=== PATIENT | female | born 1960 | race American Indian/Alaskan Native ===

== ENCOUNTER 2021-04-21 07:12 | Emergency (ER) | payer OTHER ==
[2021-04-21] MEDS ORDERED: ASPIRIN 325 MG TAB PO ONE (07:48)
[2021-04-21 08:11] LABS: Basophils # (Auto) 0.1 K/mm3 (0.0-0.1); Basophils % (Auto) 1.1 % (0.0-1.8); Eosinophils # (Auto) 0.1 K/mm3 (0.0-0.4); Eosinophils % (Auto) 2.3 % (0.0-4.3); Hematocrit 39.4 % (30.3-42.9); Hemoglobin 12.4 gm/dl (10.1-14.3); Lymphocytes # (Auto) 2.3 K/mm3 (1.2-5.4); Lymphocytes % (Auto) 39.2 % (13.4-35.0); Mean Corpuscular HGB Conc 31 % (30-34); Mean Corpuscular Volume 74 fl (79-97); Monocytes # (Auto) 0.3 K/mm3 (0.0-0.8); Monocytes % (Auto) 5.3 % (0.0-7.3); Platelet Count 198 K/mm3 (140-440); Red Blood Count 5.33 M/mm3 (3.65-5.03); Red Cell Distribution Width 16.8 % (13.2-15.2)
[2021-04-21 08:31] LABS: Alanine Aminotransferase 22 units/L (7-56); Albumin 4.7 g/dL (3.9-5); Blood Urea Nitrogen 17 mg/dL (7-17); Calcium 9.4 mg/dL (8.4-10.2); Hemolysis Index 29
[2021-04-21 08:34] LABS: BUN/Creatinine Ratio 24
--- NOTE | 2021-04-21 08:40 | XRay Report ---
CHEST 2 VIEWS INDICATION / CLINICAL INFORMATION: chest pain. COMPARISON: None available. FINDINGS: SUPPORT DEVICES: None. HEART / MEDIASTINUM: No significant abnormality. LUNGS / PLEURA: No significant pulmonary or pleural abnormality. No pneumothorax. ADDITIONAL FINDINGS: No significant additional findings. IMPRESSION: 1. No acute findings. Signer Name: Nikhil Bonilla MD Signed: 04/21/2021 8:36 AM Workstation Name: [id number]
--- NOTE | 2021-04-21 09:00 | Emergency Department Report ---
ED General Adult HPI - General Chief complaint: Chest Pain Stated complaint: HEADACHE/BODY ACHE/PAIN Source: patient Mode of arrival: Ambulatory Limitations: No Limitations - History of Present Illness Initial comments: 60-year-old female complaining of weakness only when she walks she feels weak just from her waist down to her legs Also pain in the middle of her chest x3 days she denies cough her chest pain does not radiate there is no fever there is no shortness of breath. Her weakness only occurs when she walks and the weakness is only from her waist down. When she is sitting there is no weakness she denies dizziness there is no headache there is no change in her vision no double or blurry vision. She has a past medical history of diabetes. Patient states she was seen by her PCP 2 weeks ago and there is been no improvement in her symptoms. - Related Data Previous Rx's Medication Instructions Recorded Last Taken Type Acetaminophen [Tylenol] 650 mg PO QID PRN #30 capsule 09/18/18 Unknown Rx cephALEXin [Keflex] 500 mg PO BID #14 capsule 09/18/18 Unknown Rx Naproxen 500 mg PO BID #30 tablet 09/22/18 Unknown Rx Allergies Allergy/AdvReac Type Severity Reaction Status Date / Time No Known Allergies Allergy Verified 04/21/21 07:42 ED Review of Systems ROS: Stated complaint: HEADACHE/BODY ACHE/PAIN Other details as noted in HPI ED Past Medical Hx - Past Medical History Hx Hypertension: Yes Hx Diabetes: Yes Additional medical history: high cholestrol - Social History Smoking Status: Never Smoker Substance Use Type: None - Medications Home Medications: Home Medications Medication Instructions Recorded Confirmed Last Taken Type Acetaminophen [Tylenol] 650 mg PO QID PRN #30 capsule 09/18/18 Unknown Rx cephALEXin [Keflex] 500 mg PO BID #14 capsule 09/18/18 Unknown Rx Naproxen 500 mg PO BID #30 tablet 09/22/18 Unknown Rx ED Physical Exam - General Limitations: No Limitations ED Course Vital Signs 04/21/21 04/21/21 07:41 12:49 Temperature 98.3 F Pulse Rate 74 82 Blood Pressure 165/49 159/78 [Left] O2 Sat by Pulse 100 98 Oximetry - Reevaluation(s) Reevaluation #1: 04/21/21 10:[address] Schmitt he he agrees that patient need CT of the abdomen and pelvis with contrast specifically because patient complaining of weakness to the lower extremities when she stands and she has a widened pulse pressure repeat blood pressure now is 132/46. Patient is in no acute distress with no current complaints 04/21/21 17:44 ED Medical Decision Making - Lab Data Result diagrams: 04/21/21 07:51 04/21/21 07:51 - Radiology Data Radiology results: report reviewed FINDINGS: Lungs/bones: Lung bases are clear Abdomen/pelvis: There is diffuse fatty infiltration of the liver. The spleen, adrenal glands, pancreas and gallbladder appear normal. Upper GI tract appear normal. Bilateral kidneys are unremarkable. The appendix appears normal. There is no bowel obstruction. Celiac and SMA appear normal. Portal vein is patent. No focal inflammatory changes seen. No acute bone findings are identified. IMPRESSION: 1. Fatty infiltration liver. 2. No other acute findings are seen. No focal inflammatory change. - Medical Decision Making 60-year-old female presents to emergency room complaining of weakness when to her lower extremities when she stands she also states she has been having chest pain for 4 days midsternal non-radiating. I discussed with Dr. Schmitt the plan of care and all results. EKG negative for STEMI. Troponin x2 is negative. CT of the abdomen and pelvis with contrast completed and negative. Patient d ischarged home to follow-up with her primary care doctor to return if there is any worsening or any change in her condition. Critical Care Time: No Critical care attestation.: If time is entered above; I have spent that time in minutes in the direct care of this critically ill patient, excluding procedure time. ED Disposition Clinical Impression: Atypical chest pain, Leg weakness, bilateral Disposition: DC-01 TO HOME OR SELFCARE Is pt being admited?: No Does the pt Need Aspirin: No Condition: Stable Instructions: Nonspecific Chest Pain, Adult Additional Instructions: Please follow-up with your primary care doctor as soon as possible or follow-up with Dr. Burgess. In 3 to 5 days. If no improvement or worsening symptoms please return to the emergency room. The CAT scan that you had done today only showed that your liver is fatty please follow-up with your primary care doctor regarding this otherwise there were no acute findings Referrals: PRIMARY CARE, [Primary Care Provider] - 3-5 Days Forms: Work/School Release Form(ED) Time of Disposition: 12:40
--- NOTE | 2021-04-21 12:08 | Cat Scan Report ---
CT ABDOMEN AND PELVIS WITH CONTRAST HISTORY: MAIN. Weakness lower extremities COMPARISON: None. TECHNIQUE: CT images of the abdomen and pelvis were obtained following administration of intravenous contrast. All CT scans at this location are performed using CT dose reduction for ALARA by means of automated exposure control. CONTRAST: 100 ml of intravenous contrast administered. FINDINGS: Lungs/bones: Lung bases are clear Abdomen/pelvis: There is diffuse fatty infiltration of the liver. The spleen, adrenal glands, pancre as and gallbladder appear normal. Upper GI tract appear normal. Bilateral kidneys are unremarkable. T he appendix appears normal. There is no bowel obstruction. Celiac and SMA appear normal. Portal vein is patent. No focal inflammatory changes seen. No acute bone findings are identified. IMPRESSION: 1. Fatty infiltration liver. 2. No other acute findings are seen. No focal inflammatory change. Signer Name: Nikhil Bonilla MD Signed: 04/21/2021 12:04 PM Workstation Name: [id number]
[2021-04-21 12:49] VITALS: BP 159/78
--- NOTE | 2021-04-23 21:32 | Electrocardiograph Report ---
[facility] Test Date: 2021-04-21 Test Time: 07:45:39 Pat Name: ANYI ZAMAN Department: Room: Gender: F Last Putter Away: TV : 1960 Requested By: JACKSON TUCKER Order Number: [id number] Reading MD: Harleen Camacho Measurements Intervals [place] Rate: 67 P: 68 VA: 190 QRS: -5 QRSD: 94 T: 0 QT: 409 QTc: 431 Interpretive Statements Sinus rhythm Consider left ventricular hypertrophy No previous ECG available for comparison Electronically Signed On 04-23-2021 21:32:20 EDT by Harleen Camacho
== END 2021-04-21 12:48 | disposition home or self-care (01) ==
LOC: ED 07:12
DX: R07.89 Other chest pain (principal); R29.898 Other symptoms and signs involving the musculoskeletal system; E78.00 Pure hypercholesterolemia, unspecified; I10 Essential (primary) hypertension; E11.9 Type 2 diabetes mellitus without complications; Z79.899 Other long term (current) drug therapy
CPT/HCPCS: 36415; 71046; 74177; 80053; 82550; 84484; 85025; 93005; 99284; Q9967

== ENCOUNTER 2022-03-25 21:25 | Observation (INO) | payer OTHER ==
[2022-03-25] MEDS ORDERED: ASPIRIN 325 MG TAB PO ONE (21:34)
[2022-03-25 22:15] LABS: Basophils # (Auto) 0.1 K/mm3 (0.0-0.1); Basophils % (Auto) 0.8 % (0.0-1.8); Eosinophils # (Auto) 0.1 K/mm3 (0.0-0.4); Eosinophils % (Auto) 1.3 % (0.0-4.3); Hematocrit 37.4 % (30.3-42.9); Hemoglobin 11.7 gm/dl (10.1-14.3); Lymphocytes # (Auto) 2.4 K/mm3 (1.2-5.4); Lymphocytes % (Auto) 32.4 % (13.4-35.0); Mean Corpuscular HGB Conc 31 % (30-34); Mean Corpuscular Volume 73 fl (79-97); Monocytes # (Auto) 0.6 K/mm3 (0.0-0.8); Monocytes % (Auto) 7.6 % (0.0-7.3); Platelet Count 256 K/mm3 (140-440); Red Blood Count 5.13 M/mm3 (3.65-5.03); Red Cell Distribution Width 15.1 % (13.2-15.2)
--- NOTE | 2022-03-25 22:27 | XRay Report ---
CHEST 2 VIEWS INDICATION / CLINICAL INFORMATION: CHEST PAIN. COMPARISON: 2 views of the chest from 04/21/2021. FINDINGS: SUPPORT DEVICES: None. HEART / MEDIASTINUM: No significant abnormality. LUNGS / PLEURA: No significant pulmonary abnormality. No significant pleural effusion. No pneumothora x. ADDITIONAL FINDINGS: No significant additional findings. IMPRESSION: 1. No acute abnormality of the chest. Signer Name: Jason Estrada MD Signed: 03/25/2022 10:23 PM Workstation Name: [id number]
[2022-03-25 22:35] LABS: Alanine Aminotransferase 97 units/L (7-56); Albumin 4.3 g/dL (3.9-5); BUN/Creatinine Ratio 16; Blood Urea Nitrogen 22 mg/dL (7-17); Calcium 9.6 mg/dL (8.4-10.2); Hemolysis Index 11
[2022-03-26] MEDS ORDERED: MORPHINE 4 MG/1 ML INJ IV ONE (04:02)
[2022-03-26] MEDS ORDERED: SODIUM CHLORIDE 0.9% 1000 ML 1,000 ML IV ONE (04:02)
[2022-03-26] MEDS ORDERED: ONDANSETRON 4 MG/2 ML INJ IV ONE (04:02)
[2022-03-26] MEDS ORDERED: FAMOTIDINE 20 MG/2 ML INJ IV ONE (04:02)
[2022-03-26 05:37] LABS: Bilirubin,Urine NEG (Negative); Blood,Urine NEG (Negative); Color,Urine Colorless (Yellow); Mucus,Urine FEW /HPF; Protein,Urine <15 mg/dL mg/dL (Negative); Urobilinogen,Urine < 2.0 mg/dL (<2.0); WBC,Urine < 1.0 /HPF (0.0-6.0)
--- NOTE | 2022-03-26 06:28 | Cat Scan Report ---
CTA CHEST WITH CONTRAST INDICATION / CLINICAL INFORMATION: Weakness and chest pain with S.O.B.. TECHNIQUE: Axial CT images were obtained through the chest after injection of 100 cc Omnipaque 350 IV contrast. 3 plane MIP and/or 3D reconstructions were produced. All CT scans at this location are per formed using CT dose reduction for ALARA by means of automated exposure control. COMPARISON: Chest x-ray 03/25/2022 FINDINGS: VASCULAR FINDINGS: PULMONARY ARTERY: Pulmonary artery is normal in size. No filling defects are present compatible with pulmonary artery embolus.. THORACIC AORTA: No significant abnormality. CORONARY ARTERY CALCIFICATION: Absent -- None. NONVASCULAR FINDINGS: LOWER NECK: Soft tissues and musculature of the lower neck demonstrate no significant abnormality. Th e thyroid demonstrates no significant abnormality. HEART: No significant abnormality. MEDIASTINUM / RENATO: No significant abnormality. ESOPHAGUS: No significant abnormality. LYMPH NODES: No adenopathy within the axilla, mediastinum, or renato. LUNGS: No acute air space or interstitial disease. PLEURA: No pleural effusion. No pneumothorax. THORACIC SOFT TISSUES: No significant abnormality of the chest wall or upper thoracic musculature. BONES: No significant skeletal abnormalities. ADDITIONAL CHEST FINDINGS: None. UPPER ABDOMEN: No significant abnormality. IMPRESSION: 1. No CT evidence for pulmonary embolism. 2. No acute findings. Signer Name: Pete Sainz II, MD Signed: 03/26/2022 6:24 AM Workstation Name: [id number]
--- NOTE | 2022-03-26 07:17 | Emergency Department Report ---
ED Chest Pain HPI - General Chief Complaint: Chest Pain Stated Complaint: HEADACHE/WEAKNESS/SOB Source: patient Mode of arrival: Ambulatory Limitations: No Limitations - History of Present Illness Initial Comments: Patient is a 61-year-old -[place] female with a history of hypertension, anxiety, hyperlipidemia, chronic low back pain with sciatica, kzc-cwufobp-ddfxmited diabetes who presents to the ED with complaint of acute onset persistent substernal chest pain with a burning sensation radiating to her throat and neck, sore throat, and which gets worse when she eats food for the last 3 days. Patient also complains of shortness of breath on exertion. Patient states that she just returned from a visit in [place] where she stayed for 2 weeks. Patient states that the pain has been persistent and worsens with food, movement, generalized weakness, and shortness of breath and sore throat. Patient denies dizziness, syncope, lightheadedness, headache, fever, chills, cough, abdominal pain, nausea and vomiting, nasal and sinus congestion, neck pain, numbness and tingling or weakness of upper and lower extremities bilaterally. MD Complaint: chest pain, other (Low back pain radiating to the lower extremities bilaterally) -: Sudden, days(s) (3) Onset: during exertion, other (Returned from a recent trip in [place] 4 days ago) Pain Location: substernal (Burning substernal chest pain) Pain Radiation: other (Sore throat) Severity: moderate Severity scale (0 -10): 4 Quality: aching, other (Burning substernal chest pain) Consistency: constant Improves With: nothing Worsens With: exertion, eating, other (Swallowing) Context: recent travel (Returned 4 days ago from a 2-week visit to [place]) re: denies: nausea, vomting, diaphoresis, dyspnea, sense of impending doom Other Symptoms: acid taste in mouth, other (Sore throat). denies: cough, fever, syncope, rash, palpitations Treatments Prior to Arrival: none - Related Data On Oral Contraceptives: No Previous Rx's Medication Instructions Recorded Last Taken Type Acetaminophen [Tylenol] 650 mg PO QID PRN #30 capsule 09/18/18 Unknown Rx cephALEXin [Keflex] 500 mg PO BID #14 capsule 09/18/18 Unknown Rx Naproxen 500 mg PO BID #30 tablet 09/22/18 Unknown Rx Allergies Allergy/AdvReac Type Severity Reaction Status Date / Time No Known Allergies Allergy Verified 04/21/21 07:42 Heart Score - HEART Score History: Slightly suspicious EKG: Non-specific Age: 45-65 Risk factors: > 3 risk factors or hx of atherosclerotic disease Troponin: < normal limit HEART Score: 4 - EKG Read Time Time EKG Completed: 21:41 EKG Read Time: 21:44 - Critical Actions Critical Actions: 4-6 pts:12-16.6% risk of adverse cardiac event. Should be ad mitted ED Review of Systems ROS: Stated complaint: HEADACHE/WEAKNESS/SOB Other details as noted in HPI Constitutional: denies: chills, fever Eyes: denies: eye pain, eye discharge, vision change ENT: throat pain. denies: ear pain Respiratory: denies: cough, shortness of breath, wheezing Cardiovascular: chest pain (Substernal burning chest pain radiating to the throat). denies: palpitations, dyspnea on exertion, edema, syncope Endocrine: no symptoms reported Gastrointestinal: denies: abdominal pain, nausea, vomiting, diarrhea Genitourinary: denies: urgency, dysuria, discharge Musculoskeletal: back pain (Low back pain), arthralgia. denies: joint swelling Skin: denies: rash, lesions Neurological: denies: headache, weakness, paresthesias Psychiatric: denies: anxiety, depression Hematological/Lymphatic: denies: easy bleeding, easy bruising ED Past Medical Hx - Past Medical History Hx Hypertension: Yes Hx Diabetes: Yes Additional medical history: high cholestrol - Social History Smoking Status: Never Smoker Substance Use Type: None - Medications Home Medications: Home Medications Medication Instructions Recorded Confirmed Last Taken Type Acetaminophen [Tylenol] 650 mg PO QID PRN #30 capsule 09/18/18 Unknown Rx cephALEXin [Keflex] 500 mg PO BID #14 capsule 09/18/18 Unknown Rx Naproxen 500 mg PO BID #30 tablet 09/22/18 Unknown Rx ED Physical Exam - General Limitations: No Limitations General appearance: alert, in no apparent distress - Head Head exam: Present: atraumatic, normocephalic, normal inspection - Eye Eye exam: Present: normal appearance, PERRL, EOMI Pupils: Present: normal accommodation - ENT ENT exam: Present: mucous membranes moist, TM's normal bilaterally, normal external ear exam, other (Mild erythematous oropharynx) - Neck Neck exam: Present: normal inspection, full ROM, lymphadenopathy (Right anterior cervical lymphadenopathy). Absent: tenderness - Respiratory Respiratory exam: Present: normal lung sounds bilaterally, chest wall tenderness (Palpable reproducible anterior chest wall tenderness). Absent: respiratory distress, wheezes, rales, accessory muscle use, prolonged expiratory - Cardiovascular Cardiovascular Exam: Present: regular rate, normal rhythm, normal heart sounds. Absent: systolic murmur, diastolic murmur, rubs, gallop - GI/Abdominal GI/Abdominal exam: Present: soft, normal bowel sounds. Absent: tenderness, guarding, rebound, rigid, hyperactive bowel sounds, hypoactive bowel sounds, mass, pulsatile mass - Extremities Exam Extremities exam: Present: normal inspection, full ROM, normal capillary refill - Back Exam Back exam: Present: normal inspection, full ROM. Absent: tenderness, CVA tenderness (R), CVA tenderness (L), muscle spasm, paraspinal tenderness, vertebral tenderness - Neurological Exam Neurological exam: Present: alert, oriented X3, CN II-XII intact, normal gait, reflexes normal - Psychiatric Psychiatric exam: Present: normal affect, normal mood - Skin Skin exam: Present: warm, dry, intact, normal color. Absent: rash ED Course Vital Signs 03/25/22 21:37 Temperature 98.1 F Pulse Rate 75 Respiratory 18 Rate Blood Pressure 142/56 O2 Sat by Pulse 100 Oximetry FADI score - Fadi Score Age > 65: (0) No Aspirin use within the Past 7 Days: (0) No 3 or more CAD Risk Factors: (1) Yes 2 or more Angina events in past 24 hrs: (1) Yes Known CAD with more than 50% Stenosis: (0) No Elevated Cardiac Markers: (0) No ST Deviation Greater than 0.5mm: (0) No FADI Score: 2 ED Medical Decision Making - Lab Data Result diagrams: 03/25/22 21:47 03/25/22 21:47 - EKG Data EKG shows normal: sinus rhythm Rate: normal - EKG Data Interpretation: normal EKG 03/26/22 07:20 EKG shows normal sinus rhythm with a ventricular rate of 75 bpm with a borderline ST elevation in anterior leads - Radiology Data Radiology results: report reviewed, image reviewed [facility] [address] [place] [address] XRay Report Signed Patient: ANYI ZAMAN I MR#: [id number] : 1960 Acct:[id number] Age/Sex: 61 / F ADM Date: 03/25/22 Loc: ED Attending Dr: Ordering Physician: AILIN GRACIA MD Date of Service: 03/25/22 Procedure(s): XR chest routine 2V Accession Number(s): [id number] cc: ED MD SAMIA Fluoro Time In Minutes: CHEST 2 VIEWS INDICATION / CLINICAL INFORMATION: CHEST PAIN. COMPARISON: 2 views of the chest from 04/21/2021. FINDINGS: SUPPORT DEVICES: None. HEART / MEDIASTINUM: No significant abnormality. LUNGS / PLEURA: No significant pulmonary abnormality. No significant pleural effusion. No pneumothorax. ADDITIONAL FINDINGS: No significant additional findings. IMPRESSION: 1. No acute abnormality of the chest. Signer Name: Jason Estrada MD Signed: 03/25/2022 10:23 PM Workstation Name: [id number] Transcribed By: MN Dictated By: Jason Estrada MD Electronically Authenticated By: Jason Estrada MD Signed Date/Time: 03/25/222222 DD/ 21 TD/TT: [facility] [address] [place] [address] Cat Scan Report Signed Patient: ANYI ZAMAN I MR#: [id number] : 1960 Acct:[id number] Age/Sex: 61 / F ADM Date: 03/25/22 Loc: ED Attending Dr: Ordering Physician: ASH SIMPSON Date of Service: 03/26/22 Procedure(s): CT angio chest Accession Number(s): [id number] cc: ASH SIMPSON CTA CHEST WITH CONTRAST INDICATION / CLINICAL INFORMATION: Weakness and chest pain with S.O.B.. TECHNIQUE: Axial CT images were obtained through the chest after injection of 100 cc Omnipaque 350 IV contrast. 3 plane MIP and/or 3D reconstructions were produced. All CT scans at this location are performed using CT dose reduction for ALARA by means of automated exposure control. COMPARISON: Chest x-ray 03/25/2022 FINDINGS: VASCULAR FINDINGS: PULMONARY ARTERY: Pulmonary artery is normal in size. No filling defects are present compatible with pulmonary artery embolus.. THORACIC AORTA: No significant abnormality. CORONARY ARTERY CALCIFICATION: Absent -- None. NONVASCULAR FINDINGS: LOWER NECK: Soft tissues and musculature of the lower neck demonstrate no significant abnormality. The thyroid demonstrates no significant abnormality. HEART: No significant abnormality. MEDIASTINUM / NAI: No significant abnormality. ESOPHAGUS: No significant abnormality. LYMPH NODES: No adenopathy within the axilla, mediastinum, or nai. LUNGS: No acute air space or interstitial disease. PLEURA: No pleural effusion. No pneumothorax. THORACIC SOFT TISSUES: No significant abnormality of the chest wall or upper thoracic musculature. BONES: No significant skeletal abnormalities. ADDITIONAL CHEST FINDINGS: None. UPPER ABDOMEN: No significant abnormality. IMPRESSION: 1. No CT evidence for pulmonary embolism. 2. No acute findings. Signer Name: Alan Joshua II, MD Signed: 03/26/2022 6:24 AM Workstation Name: [id number] Transcribed By: MANISH Dictated By: ALAN JOSHUA II, MD Electronically Authenticated By: ALAN JOSHUA II, MD Signed Date/Time: 03/26/22623 DD/ 9 TD/TT: - Medical Decision Making This is a 61-year-old -[place] female with a history of hypertension, anxiety, hyperlipidemia, chronic low back pain with sciatica, cpu-wmxhswt-vgmscb ent diabetes who presents to the ED with complaint of acute onset persistent substernal chest pain with a burning sensation radiating to her throat and neck, sore throat, and which gets worse when she eats food for the last 3 days. Patient also complains of shortness of breath on exertion. Patient states that she just returned from a visit in [place] where she stayed for 2 weeks. Patient states that the pain has been persistent and worsens with food, movement, generalized weakness, and shortness of breath and sore throat. In the ED, patient is alert and oriented x3 and is not in any distress. EKG shows normal sinus rhythm with a ventricular rate of 75 bpm with a borderline ST elevation a nd anterior leads. Lab test results were reviewed and are all nonactionable including initial and 3-hour troponin level. Chest x-ray showed no acute cardiopulmonary abnormalities or pneumonitis. Chest CTA showed no evidence of PE. Patient was treated for pain in the ED and on reevaluation, patient's pain is persistent and constant. Patient's heart score is 4 and FADI score of 2. Based on the patient's history, heart score, persistent shortness of breath and chest pain, and FADI score of 2, patient was admitted to the hospital for chest pain rule out. I therefore paged and discussed the patient's case with the hospitalist physician office, given the report and Dr. Slaughter was to admit the patient to the hospital for further evaluation. - Differential Diagnosis ACS; PE; pneumonia; dissection; GERD; Critical Care Time: Yes Critical care time in (mins) excluding proc time.: 35 Critical care attestation.: If time is entered above; I have spent that time in minutes in the direct care of this critically ill patient, excluding procedure time. Critical Care Time: Critical care time spent on lab tests evaluation and review, imaging report reviewed, patient education, and consultation with the hospitalist physicians. ED Disposition Clinical Impression: Atypical chest pain, Shortness of breath Disposition: 02 [facility] Is pt being admited?: Yes Does the pt Need Aspirin: No Condition: Stable Instructions: Shortness of Breath, Adult, Ilwi-hd-Eieb, Nonspecific Chest Pain, Adult, Kjvn-jc-Tsin Referrals: DUANE BRANHAM MD [Primary Care Provider] - 3-5 Days Time of Disposition: 07:25 Print Language: SPANISH
[2022-03-26] MEDS ORDERED: ACETAMINOPHEN 325 MG TAB PO PRN (07:31)
[2022-03-26] MEDS ORDERED: ONDANSETRON 4 MG/2 ML INJ IV PRN (07:31)
--- NOTE | 2022-03-26 08:52 | History and Physical Report ---
History of Present Illness Date of examination: 03/26/22 Date of admission: 03/26/2022 Chief complaint: Chest pain History of present illness: 61-year-old -Russian female patient with significant history of hypertension, anxiety, hyperlipidemia, chronic low back pain with sciatica, [id number] diabetes presented to the ED with complaint of acute onset persistent substernal chest pain with a burning sensation radiating to her throat and neck, and epigastrium, patient reports that sometimes it is retrosternal and the pain is associated with taking food, Patient also complains of generalized weakness, she has seen cardiology sometime back she does not remember the name Denies any significant coronary artery disease Denies nausea vomiting, mild s hortness of breath No orthopnea or paroxysmal nocturnal dyspnea First 2 sets of cardiac enzymes are negative EKG nonspecific ST-T changes. CTA chest negative for PE no acute abnormality noted Past History Past Medical History: diabetes, hypertension Past Surgical History: No surgical history Social history: denies: smoking, alcohol abuse, prescription drug abuse Family history: no significant family history Medications and Allergies Allergies Allergy/AdvReac Type Severity Reaction Status Date / Time No Known Allergies Allergy Verified 04/21/21 07:42 Home Medications Medication Instructions Recorded Confirmed Last Taken Type Acetaminophen [Tylenol] 650 mg PO QID PRN #30 capsule 09/18/18 Unknown Rx cephALEXin [Keflex] 500 mg PO BID #14 capsule 09/18/18 Unknown Rx Naproxen 500 mg PO BID #30 tablet 09/22/18 Unknown Rx Active Meds: Active Medications Acetaminophen (Acetaminophen 325 Mg Tab) 650 mg PO Q4H PRN PRN Reason: Pain MILD(1-3)/Fever >100.5/ANGELES Ondansetron HCl (Ondansetron 4 Mg/2 Ml Inj) 4 mg IV Q8H PRN PRN Reason: Nausea And Vomiting Sodium Chloride (Sodium Chloride 0.9% 10 Ml Flush Syringe) 10 ml IV BID KELLY Sodium Chloride (Sodium Chloride 0.9% 10 Ml Flush Syringe) 10 ml IV PRN PRN PRN Reason: LINE FLUSH Review of Systems Constitutional: weakness, no weight loss, no weight gain, no fever, no chills Ears, nose, mouth and throat: no nasal congestion, no nasal discharge Cardiovascular: chest pain, no orthopnea, no palpitations, no edema, no lightheadedness, no shortness of breath Respiratory: no cough, no hemoptysis Gastrointestinal: no abdominal pain, no nausea, no vomiting Musculoskeletal: no neck stiffness, no neck pain, no myalgias, no arthritis Integumentary: no rash, no pruritis Neurological: no tingling, no seizures, no syncope Psychiatric: no anxiety, no memory loss Endocrine: no cold intolerance, no heat intolerance Hematologic/Lymphatic: no easy bruising, no easy bleeding Allergic/Immunologic: no urticaria, no allergic rhinitis Exam - Constitutional Vitals: Temp Pulse Resp BP Pulse Ox 98.1 F 75 18 142/56 100 03/25/22 21:37 03/25/22 21:37 03/25/22 21:37 03/25/22 21:37 03/25/22 21:37 General appearance: Present: mild distress, well-nourished - EENT Eyes: Present: PERRL, EOM intact - Neck Neck: Present: supple, normal ROM - Respiratory Respiratory effort: normal Respiratory: bilateral: diminished, negative: rales, rhonchi, wheezing - Cardiovascular Rhythm: regular Heart Sounds: Present: S1 & S2 - Extremities Extremities: no ischemia, No edema - Abdominal General gastrointestinal: Present: soft, non-distended - Integumentary Integumentary: Present: clear, warm - Musculoskeletal Musculoskeletal: strength equal bilaterally - Psychiatric Psychiatric: appropriate mood/affect, cooperative - Neurologic Neurologic: CNII-XII intact, moves all extremities HEART Score - HEART Score EKG: Non-specific Age: 45-65 Risk factors: > 3 risk factors or hx of atherosclerotic disease Troponin: Troponin T < 0.010 ng/mL (0.00-0.029) 03/26/22 00:57 Troponin: < normal limit - Critical Actions Critical Actions: 4-6 pts:12-16.6% risk of adverse cardiac event. Should be admitted Results - Labs CBC & Chem 7: 03/26/22 09:44 03/26/22 09:44 Labs: Abnormal lab results 03/25/22 03/25/22 03/26/22 Range/Units 21:47 21:47 05:31 RBC 5.13 H (3.65-5.03) M/mm3 MCV 73 L (79-97) fl MCH 23 L (28-32) pg [place] % (Auto) 7.6 H (0.0-7.3) % Chloride 96.9 L (98-107) mmol/L BUN 22 H (7-17) mg/dL Creatinine 1.4 H (0.6-1.2) mg/dL Glucose 278 H (65-100) mg/dL AST 55 H (5-40) units/L ALT 97 H (7-56) units/L Urine pH 8.0 H (5.0-7.0) Assessment and Plan -Atypical chest pain; Serial cardiac enzymes x3 negative EKG no acute ST-T changes Patient complains of retrosternal epigastric and flank pain Continue aspirin and statin beta-blockers nitrates Check echocardiogram inpatient versus outpatient --possible GERD gastroesophageal reflux disease- Protonix, spicy oily foods, timely meals Antacid and supportive care If no improvement advised to see GI as outpatient for further evaluation management --diabetes/hyperglycemia- Accu-Cheks, sliding scale coverage, ADA diet Insulin as needed, check A1c, Patient's home medications and resume --DVT prophylaxis subcu Lovenox --full CODE STATUS We will closely monitor the patient and adjust management as needed Plan of care reviewed with the patient and her nurse Will observe overnight for any cardiac symptoms any abnormal values The patient is stable and symptom-free may discharge home tomorrow Further evaluation with journeyman electrician pv installer and GI as outpatient Plan of care reviewed with the patient and her nurse
[2022-03-26] MEDS ORDERED: traMADol 50 MG TAB PO PRN (09:00)
[2022-03-26] MEDS ORDERED: MORPHINE 4 MG/1 ML INJ IV PRN (09:00)
[2022-03-26] MEDS ORDERED: NITROGLYCERIN 0.4 MG TAB SUBL SL PRN (09:00)
[2022-03-26 10:04] LABS: Basophils # (Auto) 0.1 K/mm3 (0.0-0.1); Eosinophils # (Auto) 0.1 K/mm3 (0.0-0.4); Eosinophils % (Auto) 1.3 % (0.0-4.3); Hemoglobin 12.1 gm/dl (10.1-14.3); Lymphocytes # (Auto) 2.3 K/mm3 (1.2-5.4); Lymphocytes % (Auto) 38.8 % (13.4-35.0); Mean Corpuscular HGB Conc 32 % (30-34); Mean Corpuscular Volume 73 fl (79-97); Monocytes # (Auto) 0.3 K/mm3 (0.0-0.8); Monocytes % (Auto) 5.8 % (0.0-7.3); Platelet Count 233 K/mm3 (140-440); Red Blood Count 5.23 M/mm3 (3.65-5.03); Red Cell Distribution Width 15.3 % (13.2-15.2)
[2022-03-26 10:22] LABS: Blood Urea Nitrogen 11 mg/dL (7-17); Calcium 9.4 mg/dL (8.4-10.2); Hemolysis Index 4
[2022-03-26 10:23] LABS: BUN/Creatinine Ratio 18
--- NOTE | 2022-03-26 10:26 | Electrocardiograph Report ---
[facility] Test Date: 2022-03-25 Test Time: 21:41:32 Pat Name: ANYI ZAMAN Department: Room: [facility] Gender: F Record Press Tender: IRNEE : 1960 Requested By: VALENTINA MATIAS Order Number: [id number] Reading MD: Saroj Basilio Measurements Intervals [place] Rate: 75 P: 68 FL: 169 QRS: 8 QRSD: 87 T: 42 QT: 394 QTc: 441 Interpretive Statements Sinus rhythm Borderline ST elevation, anterior leads Compared to ECG 04/21/2021 07:45:39 ST (T wave) deviation now present Electronically Signed On 03-26-2022 10:26:05 EDT by Saroj Basilio
[2022-03-26] MEDS: carvediloL 3.125 MG TAB PO SCH ×2 (14:37→23:56)
[2022-03-26] MEDS: FAMOTIDINE 20 MG TAB PO SCH ×2 (14:37→23:56)
[2022-03-26] MEDS: ENOXAPARIN 40 MG/0.4 ML INJ SUB-Q SCH (14:39)
[2022-03-26 15:48] LABS: Amphetamine Screen,Urine Negative; Benzodiazepines Screen,Urine Negative; Cannabinoid Screen,Urine Negative; Cocaine Screen,Urine Negative; Methadone Screen,Urine Negative; Opiate Screen,Urine Negative
[2022-03-26] MEDS: INSULIN LISPRO 100 UNIT/ML SUB-Q SCH (23:55)
--- NOTE | 2022-03-27 07:23 | Discharge Summary ---
Providers - Providers Date of Admission: 03/26/22 08:45 Date of discharge: 03/27/22 Attending physician: JODY SETH Primary care physician: DUANE BRANHAM Hospitalization Reason for admission: Chest pain Condition: Stable Pertinent studies: Chest x-ray; no acute abnormality noted CTA no evidence of PE Hospital course: -Atypical chest pain; Serial cardiac enzymes x3 negative EKG no acute ST-T changes Patient complains of retrosternal epigastric and flank pain Continue aspirin and statin beta-blockers nitrates Check echocardiogram inpatient versus outpatient --possible GERD gastroesophageal reflux disease- Protonix, spicy oily foods, timely meals Antacid and supportive care If no improvement advised to see GI as outpatient for further evaluation management --Dyslipidemia -diabetes/hyperglycemia- Accu-Cheks, sliding scale coverage, ADA diet Insulin as needed, check A1c, Patient's home medications and resume --DVT prophylaxis subcu Lovenox --full CODE STATUS We will closely monitor the patient and adjust management as needed Plan of care reviewed with the patient and her nurse Will observe overnight for any cardiac symptoms any abnormal values The patient is stable and symptom-free may discharge home tomorrow Further evaluation with lounge car attendant and GI as outpatient Plan of care reviewed with the patient and her nurse Final Discharge Diagnosis (Prints w/discharge instructions): Atypical chest pain resolved. Gastroesophageal reflux disease. Hypertension. Type 2 diabetes mellitus. Dyslipidemia Time spent for discharge: 35 minutes Core Measure Documentation - Palliative Care Palliative Care/ Comfort Measures: Not Applicable - Core Measures Any of the following diagnoses?: none Exam - Constitutional Vitals: Temp Pulse Resp BP Pulse Ox 97.8 F 60 16 139/70 100 03/27/22 04:13 03/27/22 04:13 03/27/22 04:13 03/27/22 04:13 03/27/22 04:13 General appearance: Present: no acute distress, well-nourished - EENT Eyes: Present: PERRL, EOM intact - Neck Neck: Present: supple, normal ROM - Respiratory Respiratory effort: normal Respiratory: bilateral: diminished, negative: rales, rhonchi, wheezing - Cardiovascular Rhythm: regular Heart Sounds: Present: S1 & S2 - Extremities Extremities: no ischemia, No edema - Abdominal General gastrointestinal: Present: soft, non-tender, non-distended, normal bowel sounds - Integumentary Integumentary: Present: clear, warm - Musculoskeletal Musculoskeletal: strength equal bilaterally, generalized weakness - Psychiatric Psychiatric: appropriate mood/affect, cooperative - Neurologic Neurologic: moves all extremities Plan Activity: advance as tolerated Diet: diabetic, low carbohydrate Additional Instructions: If you have worsening symptoms contact MD or go to the nearest emergency room as needed. Advised to see private lounge car attendant in 1 week or as needed for further evaluation and management of her atypical chest pain. Advised to see private GI in 2 weeks or as needed for further evaluation and management of possible GERD[gastroesophageal reflux disease] Follow up with: DUANE BRNAHAM MD [Primary Care Provider] - 3-5 Days FANNY ASH MD [Staff Physician] - 14 Days AMANDA BALL MD [Staff Physician] - 7 Days Prescriptions: carvediloL [Coreg] 3.125 mg PO BID #60 tablet Famotidine [Pepcid] 20 mg PO BID #60 tablet
[2022-03-27 08:03] VITALS: BP 132/60
[2022-03-27] MEDS: ENOXAPARIN 40 MG/0.4 ML INJ SUB-Q SCH ×2 (08:32→09:10)
[2022-03-27] MEDS: carvediloL 3.125 MG TAB PO SCH ×2 (08:32→09:09)
[2022-03-27] MEDS: ASPIRIN EC 325 MG TAB PO SCH ×2 (08:32→09:09)
[2022-03-27] MEDS: INSULIN LISPRO 100 UNIT/ML SUB-Q SCH ×2 (08:34→12:18)
[2022-03-27] MEDS: FAMOTIDINE 20 MG TAB PO SCH (09:10)
--- NOTE | 2022-03-28 10:46 | Electrocardiograph Report ---
[facility] Test Date: 2022-03-26 Test Time: 20:04:19 Pat Name: ANYI DEGROOT Department: Room: A457 Gender: F Industrial Retrofit Designer: Zaria PEPPER : 1960 Requested By: JODY SETH Order Number: [id number] Reading MD: Saroj Basilio Measurements Intervals [place] Rate: 67 P: 58 [place]: 189 QRS: -8 QRSD: 88 T: 54 QT: 419 QTc: 443 Interpretive Statements Sinus rhythm Probable left atrial enlargement Probable left ventricular hypertrophy Compared to ECG 03/25/2022 21:41:32 ST (T wave) deviation no longer present Electronically Signed On 03-28-2022 10:45:55 EDT by Saroj Basilio
--- NOTE | 2022-03-28 10:47 | Electrocardiograph Report ---
[facility] Test Date: 2022-03-27 Test Time: 07:18:13 Pat Name: ANYI DEGROOT Department: Room: A457 1 Gender: F Die Cast Technician: SUE : 1960 Requested By: JODY SETH Order Number: [id number] Reading MD: Saroj Basilio Measurements Intervals [place] Rate: 59 P: 75 RI: 224 QRS: 7 QRSD: 90 T: 60 QT: 438 QTc: 434 Interpretive Statements Sinus rhythm Prolonged RI interval Probable left atrial enlargement Probable left ventricular hypertrophy Electronically Signed On 03-28-2022 10:47:19 EDT by Saroj Basilio
== END 2022-03-27 14:37 | disposition home or self-care (01) ==
LOC: ED 21:25 → INTOOBSV 03-26 08:45 → 4A 03-26 08:45
PROVIDERS: ADMIT Internal Medicine; ATTEND Internal Medicine
DX: R07.89 Other chest pain (principal); I10 Essential (primary) hypertension; E11.65 Type 2 diabetes mellitus with hyperglycemia; K21.9 Gastro-esophageal reflux disease without esophagitis; E78.00 Pure hypercholesterolemia, unspecified; E78.5 Hyperlipidemia, unspecified; R06.02 Shortness of breath; Z79.899 Other long term (current) drug therapy
CPT/HCPCS: 36415; 71046; 71275; 80048; 80053; 80307; 81001; 82550; 82553; 82962; 83880; 84484; 85025; 93005; 96361; 96372; 96374; 96375; 99291; G0378; J1650; J2270; J2405; J3490; J7030; Q9967; J1815

== ENCOUNTER 2022-05-10 05:41 | Emergency (ER) | payer OTHER ==
[2022-05-10 23:02] VITALS: BP 154/77
== END 2022-05-11 06:30 | disposition left against medical advice (07) ==
LOC: ED 05:41
DX: R53.1 Weakness (principal); Z53.21 Procedure and treatment not carried out due to patient leaving prior to being seen by health care provider; W19.XXXA Unspecified fall, initial encounter; Y93.89 Activity, other specified; Y92.89 Other specified places as the place of occurrence of the external cause; Y99.8 Other external cause status
CPT/HCPCS: 82962